=== PATIENT | male | born 1955 | race Caucasian/White ===

== ENCOUNTER 2019-02-12 06:31 | Day surgery (SDC) | payer MEDICARE, OTHER ==
[~2019-02-12 06:31] MED LIST: Lactated Ringers 1,000 ML IV SCH
[2019-02-12] MEDS ORDERED: DIPRIVAN 200 MG/20 ML IV ONE ×2 (07:43→08:18)
[2019-02-12 09:16] VITALS: BP 148/86; PULSE 63; O2SAT 94
--- NOTE | 2019-02-12 10:05 | OP ---
SURGERY DATE/TIME: 02/12/2019 0810 PREOPERATIVE DIAGNOSIS: Diarrhea. POSTOPERATIVE DIAGNOSIS: Diffuse diverticulosis. PROCEDURE: Colonoscopy. SURGEON: Larry Velasquez M.D. ANESTHESIA: MAC by Jakub Maria CRNA. ESTIMATED BLOOD LOSS: Minimal. SPECIMENS: Three random cold forceps biopsies were taken from the sigmoid colon. DESCRIPTION OF PROCEDURE: After informed written consent was obtained, the patient was taken to the endoscopy suite. He underwent monitored anesthesia and digital rectal exam showed normal sphincter tone and no internal lesions. The scope was inserted into the rectum and sequentially the entire colonic mucosa was traversed. The level of cecum was reached and verified with direct visualization of ileocecal valve. Upon withdrawal careful mucosal inspection revealed diffuse diverticulosis throughout most the length of the colon but no other mucosal lesions or abnormalities were noted. Three cold forceps biopsies were taken from the sigmoid colon in random locations for pathology testing. Prior to withdrawal retroflexion was performed and showed no internal lesions. The scope was removed and the patient was transferred to the recovery room in good condition.
== END 2019-02-12 09:29 | disposition home or self-care (01) ==
LOC: SDC 06:31
PROVIDERS: ATTEND Family Medicine
DX: K57.30 Diverticulosis of large intestine without perforation or abscess without bleeding (principal)
CPT/HCPCS: 88305; J2704

== ENCOUNTER → 2019-06-11 | Outpatient (CLI) | payer MEDICARE, OTHER | LOC: CLIN-LAKE 08:00 | PROVIDERS: ATTEND Family Medicine | DX: N40.1 Benign prostatic hyperplasia with lower urinary tract symptoms (principal); M19.90 Unspecified osteoarthritis, unspecified site | CPT/HCPCS: 99213 ==

== ENCOUNTER 2022-04-04 06:24 | Day surgery (SDC) | payer MEDICARE, OTHER ==
[2022-04-04] MEDS ORDERED: Lactated Ringers 1,000 ML IV ONE (06:37)
[2022-04-04] MEDS ORDERED: Xylocaine-Mpf 2% 5 Ml Vial ONE (06:59)
[2022-04-04] MEDS ORDERED: DIPRIVAN 200 MG/20 ML IV ONE ×2 (06:59)
[2022-04-04] MEDS ORDERED: Lactated Ringers 1,000 ML IV SCH (07:00)
[2022-04-04] MEDS ORDERED: Versed 2 MG/2 ML Injection ONE (07:53)
--- NOTE | 2022-04-04 08:29 | OP ---
SURGERY DATE/TIME: 04/04/2022 0756 PREOPERATIVE DIAGNOSIS: Screening colonoscopy. POSTOPERATIVE DIAGNOSIS: Normal colon. PROCEDURE: Colonoscopy. SURGEON: Larry Velasquez M.D. ANESTHESIA: MAC by Red Aiken CRNA. ESTIMATED BLOOD LOSS: None. SPECIMENS: None. DESCRIPTION OF PROCEDURE: After informed written consent was obtained, the patient was taken to the endoscopy suite. He was placed in left lateral decubitus position and anesthesia was titrated to desired level of consciousness. Digital rectal exam showed normal sphincter tone and no internal lesions. The scope was inserted into the rectum and sequentially the entire colonic mucosa was traversed. The level of cecum was reached and verified with direct visualization of the ileocecal valve. Upon withdrawal careful mucosal inspection revealed scattered diverticula but no other mucosal lesions. Prior to withdrawal retroflexion was performed and showed no internal lesions. The scope was removed. The patient was transferred to the recovery room in good condition.
[2022-04-04 09:17] VITALS: O2SAT 96
[2022-04-04 09:19] VITALS: BP 142/86; PULSE 58
== END 2022-04-04 09:12 | disposition home or self-care (01) ==
LOC: SDC 06:24
PROVIDERS: ATTEND Family Medicine
DX: Z12.11 Encounter for screening for malignant neoplasm of colon (principal)
CPT/HCPCS: J2250; J2704

== ENCOUNTER 2023-10-26 12:31 | Observation (INO) | payer MEDICARE, OTHER ==
[2023-10-26] MEDS ORDERED: BABY ASPIRIN 81 MG CHEW ONE (12:55)
[2023-10-26] MEDS ORDERED: NITRO-BID 2% UD PACKETS ONE (12:55)
[2023-10-26] MEDS ORDERED: Sodium Chloride 0.9% 1000 ML 1,000 ML ONE ×2 (12:55→16:08)
[2023-10-26 12:56] LABS: Absolute Neutrophil Ct (ANC) 4.44 x10^3/uL (1.4-6.9); BASOPHIL % 0.2 % (0.0-0.4); Basophil (Absolute #) 0.01 x10^3/uL (0-0.4); Eosinophil % 1.1 % (0.00-5.0); Eosinophil (Absolute #) 0.07 x10^3/uL (0-0.5); Hematocrit 40.8 % (42-50); Hemoglobin 13.4 g/dL (12.5-18.0); IMMATURE GRAN # 0.05 x10^3u/L (0.00-0.03); IMMATURE GRAN % 0.8 % (0.00-0.4); Lymphocyte (Absolute #) 1.49 x10^3/uL (1.0-4.6); Lymphocytes % 22.5 % (24.0-44.0); Mean Cell Volume 93.8 fL (78-100); Mean Corpuscular Hemoglobin 30.8 pg (26-32); Mean Corpuscular Hgb Concent. 32.8 g/dL (32-36); Mean Platelet Volume 8.9 fL (7.5-11.0); Monocyte (Absolute #) 0.56 x10^3/uL (0.0-1.3); Monocytes % 8.5 % (0.0-12.0); Neutrophil % 66.9 % (36.0-66.0); Platelet Count 204 x10^3/uL (150-450); Red Blood Count 4.35 x10^6/uL (4.1-5.6); Red Cell Distribution Width 13.4 % (11.5-14.0); White Blood Count 6.6 x10^3/uL (4.0-10.5)
[2023-10-26] MEDS: BABY ASPIRIN 81 MG CHEW PO ONE (12:57)
--- NOTE | 2023-10-26 12:57 | ERPHSYRPT ---
- History of Present Illness Time Seen by Provider: 10/26/23 12:53 Historian: patient Exam Limitations: no limitations Patient Subjective Stated Complaint: C/O intermittent chest pain that started on , 10/24/23. The pain became more constant today and was accompanied with "light headedness" and SOB so patient came into the ER to be evaluated. Triage Nursing Assessment: Patient ambulated back to ER. He is alert and oriented. Patient slightly SOB with ambulated but rebounding quickly. No cough present. Skin tone normal. No edema. JUDE PERALES. Physician History: Patient is 68-year-old male with significant past medical history of hypertension started having chest pain off and on since last 2 days while he was working yesterday it did got worse but at night it it went away today morning he started having chest pain again with shortness of breath so he came to the emergency room. He was complaining of right side chest pain with right-sided shoulder pain with mild shortness of breath. He denies any nausea vomiting diarrhea headache dizziness or loss of consciousness. Timing/Duration: day(s) (Two days) Quality: aching, dullness Location: shoulder Severity of Pain-Max: mild Severity of Pain-Current: moderate Associated Symptoms: shortness of breath Prior Chest Pain/Cardiac Workup: no prior chest pain Nitro Today/Relief: 0.4 mg x 1 Aspirin Treatment Today: 325 mg x 1 Allergies/Adverse Reactions: yellow dye Allergy (Severe, Verified 10/26/23 12:32) Hives yellow dye #5 Home Medications: Meloxicam [Mobic] 15 mg PO DAILY 02/10/19 [History] Metoprolol Succinate 25 mg Xl* [Toprol-Xl 25MG Tablets] 25 mg PO DAILY 04/23 [History] Amlodipine Besylate 5 mg [Norvasc 5 mg] 5 mg PO DAILY 04/03/22 [History] Tamsulosin HCl 0.4 mg [Flomax 0.4 MG] 0.4 mg PO DAILY 04/03/22 [History] hydroCHLOROthiazide [Hydrochlorothiazide] 12.5 mg PO DAILY 04/03/22 [History] Losartan Potassium [Cozaar] 1 tab PO DAILY 10/26/23 [History] Hx Tetanus, Diphtheria Vaccination/Date Given: Yes Hx Influenza Vaccination/Date Given: Yes Hx Pneumococcal Vaccination/Date Given: Yes Immunizations Up to Date: Yes Travel Risk - International Travel Have you traveled outside of the country in past 3 weeks: No - Emerging Infectious Disease Are you exhibiting symptoms associated with any current EIDs: Yes Symptoms: Shortness of Breath - Review of Systems Constitutional: No Fever, No Chills Eyes: No Symptoms Ears, Nose, & Throat: No Symptoms Respiratory: Dyspnea, No Cough Cardiac: Chest Pain, No Edema, No Syncope Abdominal/Gastrointestinal: No Abdominal Pain, No Nausea, No Vomiting, No Diarrhea Genitourinary Symptoms: No Dysuria Musculoskeletal: No Back Pain, No Neck Pain Skin: No Rash Neurological: No Dizziness, No Focal Weakness, No Sensory Changes Psychological: No Symptoms Endocrine: No Symptoms All Other Systems: Reviewed and Negative - Past Medical History Pertinent Past Medical History: Yes Neurological History: Migraines ENT History: Cataracts Cardiac History: Hypertension Respiratory History: No Pertinent History Endocrine Medical History: No Pertinent History Musculoskeletal History: Arthritis GI Medical History: No Pertinent History History: Other Psycho-Social History: No Pertinent History Male Reproductive Disorders: Prostate Problems Other Medical History: cellulitis R hand, leukemia (currently in remission) - Past Surgical History Past Surgical History: Yes Neuro Surgical History: No Pertinent History Cardiac: No Pertinent History Respiratory: No Pertinent History Gastrointestinal: Appendectomy Genitourinary: No Pertinent History Musculoskeletal: No Pertinent History Male Surgical History: No Pertinent History Other Surgical History: Hand surgery repair left tendon repair after air nail injury Significant Family History: no pertinent family hx - Social History Smoking Status: Never smoker Exposure to second hand smoke: No Drug Use: none - Nursing Vital Signs Nursing Vital Signs: Initial Vital Signs Pulse Rate 73 10/26/23 12:30 Respiratory Rate 17 10/26/23 12:30 Blood Pressure 158/92 10/26/23 12:30 O2 Sat by Pulse Oximetry 95 10/26/23 12:30 Pain Scale Pain Intensity 0 - Physical Exam General Appearance: no apparent distress, alert Eye Exam: PERRL/EOMI, eyes nml inspection Ears, Nose, Throat Exam: normal ENT inspection, moist mucous membranes Neck Exam: normal inspection, non-tender, supple, full range of motion Respiratory Exam: normal breath sounds, lungs clear, No respiratory distress Cardiovascular Exam: regular rate/rhythm, normal heart sounds Gastrointestinal/Abdomen Exam: soft, No tenderness, No mass Back Exam: normal inspection, No CVA tenderness, No vertebral tenderness Extremity Exam: normal inspection, normal range of motion Neurologic Exam: alert, oriented x 3, cooperative, normal mood/affect, sensation nml, No motor deficits Skin Exam: normal color, warm, dry SpO2: 95 - Course Nursing assessment & vital signs reviewed: Yes EKG Interpreted by Me: Sinus Rhythm, Non-specific ST Changes - Radiology Exams Chest X-ray Interpretation: Reviewed by me Ordered Tests: Active Orders 24 hr Category Date Time Status EKG-ER Only STAT Care 10/26/23 12:35 Active IV Insertion STAT Care 10/26/23 12:35 Active Oxygen-ED Only Nasal Cannula 2 lpm Care 10/26/23 12:35 Active ABDOMEN AND PELVIS W/0 CONTRAS [CT] Stat Exams 10/26/23 16:26 Completed CHEST 2 VIEWS (PA AND LAT) Stat Exams 10/26/23 12:37 Taken CHEST WITH CONTRAST [CT] Stat Exams 10/26/23 13:29 Completed CBC W DIFF Stat Lab 10/26/23 12:44 Completed CMP Stat Lab 10/26/23 12:44 Completed D-DIMER QUANTITATIVE Stat Lab 10/26/23 12:44 Completed OB-FECAL SCREEN Stat Lab 10/26/23 Ordered PROTIME WITH INR Stat Lab 10/26/23 12:44 Completed PTT Stat Lab 10/26/23 12:44 Completed TROPONIN Q4H Lab 10/26/23 17:30 Received TROPONIN Q4H Lab 10/26/23 20:45 Ordered Medication Summary Discontinued Medications Generic Name Dose Route Start Last Admin Trade Name Freq PRN Reason Stop Dose Admin Aspirin 324 mg 10/26/23 12:35 10/26/23 12:57 Aspirin 81 Mg Tab.Chew PO 10/26/23 12:36 324 mg STAT ONE Administration Aspirin Confirm 10/26/23 12:55 Aspirin 81 Mg Tab.Chew Administered 10/26/23 12:56 Dose 324 mg .ROUTE .STK-MED ONE Enoxaparin Sodium 120 mg 10/26/23 15:46 10/26/23 16:07 Enoxaparin Sodium 120 Mg/0.8 Ml Syringe SQ 10/26/23 15:47 120 mg STAT STA Administration Enoxaparin Sodium Confirm 10/26/23 16:04 Enoxaparin Sodium 120 Mg/0.8 Ml Syringe Administered 10/26/23 16:05 Dose 120 mg SQ .STK-MED ONE Sodium Chloride 1,000 mls @ 100 mls/hr 10/26/23 12:45 10/26/23 15:00 Sodium Chloride 0.9% 1000 Ml IV 11/25/23 12:44 Infused .Q10H KALPESH Infusion Sodium Chloride Confirm 10/26/23 12:55 Sodium Chloride 0.9% 1000 Ml Administered 10/26/23 12:56 Dose 1,000 mls @ ud .ROUTE .STK-MED ONE Sodium Chloride Confirm 10/26/23 16:08 Sodium Chloride 0.9% 1000 Ml Administered 10/26/23 16:09 Dose 1,000 mls @ ud .ROUTE .STK-MED ONE Sodium Chloride 1,000 mls @ 999 mls/hr 10/26/23 16:11 10/26/23 17:30 Sodium Chloride 0.9% 1000 Ml IV 10/26/23 17:11 Infused .Q1H1M STA Infusion Morphine Sulfate 4 mg 10/26/23 12:35 10/26/23 13:03 Morphine Sulfate 4 Mg/Ml Injection IV 10/26/23 12:36 Not Given STAT ONE Nitroglycerin 1 gm 10/26/23 12:35 10/26/23 12:58 Nitroglycerin 1 Gm Packet TOP 10/26/23 12:36 1 gm STAT ONE Administration Nitroglycerin Confirm 10/26/23 12:55 Nitroglycerin 1 Gm Packet Administered 10/26/23 12:56 Dose 1 gm .ROUTE .STK-MED ONE Rivaroxaban 20 mg 10/26/23 15:47 10/26/23 16:51 Rivaroxaban 10 Mg Tablet PO 10/26/23 15:48 Not Given ONCE ONE Lab/Rad Data: Laboratory Result Diagrams 10/26/23 12:44 10/26/23 12:44 Laboratory Results 10/26/23 10/26/23 10/26/23 Range/Units 12:44 12:44 12:44 WBC (4.0-10.5) x10^3/uL RBC (4.1-5.6) x10^6/uL Hgb (12.5-18.0) g/dL Hct (42-50) % MCV (78-100) fL MCH (26-32) pg MCHC (32-36) g/dL RDW (11.5-14.0) % Plt Count (150-450) x10^3/uL MPV (7.5-11.0) fL Gran % (36.0-66.0) % Immature Gran % (Auto) (0.00-0.4) % Nucleat RBC Rel Count (0.00-0.1) % Eos # (Auto) (0-0.5) x10^3/uL Immature Gran # (Auto) (0.00-0.03) x10^3u/L Absolute Lymphs (auto) (1.0-4.6) x10^3/uL Absolute Monos (auto) (0.0-1.3) x10^3/uL Absolute Nucleated RBC (0.00-0.01) x10^3u/L Lymphocytes % (24.0-44.0) % Monocytes % (0.0-12.0) % Eosinophils % (0.00-5.0) % Basophils % (0.0-0.4) % Absolute Granulocytes (1.4-6.9) x10^3/uL Basophils # (0-0.4) x10^3/uL PT 10.6 (9.4-12.5) SECONDS INR 0.97 (0.8-3.0) APTT 25.4 (25.1-36.5) SECONDS D-Dimer 4.90 H* (0.0-0.50) mg/L Sodium 138 (135-145) mmol/L Potassium 4.0 (3.5-5.1) mmol/L Chloride 108 H (98-107) mmol/L Carbon Dioxide 20 L (22-30) mmol/L Anion Gap 13.9 (5-15) MEQ/L BUN 24 H (9-20) mg/dL Creatinine 1.56 H (0.66-1.25) mg/dL Estimated GFR 47.5 ML/MIN Glucose 94 (74-106) mg/dL Calcium 9.0 (8.4-10.2) mg/dL Total Bilirubin 0.80 (0.2-1.3) mg/dL AST 23 (17-59) U/L ALT 18 (0-50) U/L Alkaline Phosphatase 71 (38-126) U/L Troponin 0.04 H (0.00-0.03) ng/mL Serum Total Protein 6.8 (6.3-8.2) g/dL Albumin 4.2 (3.5-5.0) g/dL 10/26/23 Range/Units 12:44 WBC 6.6 (4.0-10.5) x10^3/uL RBC 4.35 (4.1-5.6) x10^6/uL Hgb 13.4 (12.5-18.0) g/dL Hct 40.8 L (42-50) % MCV 93.8 (78-100) fL MCH 30.8 (26-32) pg MCHC 32.8 (32-36) g/dL RDW 13.4 (11.5-14.0) % Plt Count 204 (150-450) x10^3/uL MPV 8.9 (7.5-11.0) fL Gran % 66.9 H (36.0-66.0) % Immature Gran % (Auto) 0.8 H (0.00-0.4) % Nucleat RBC Rel Count 0.0 (0.00-0.1) % Eos # (Auto) 0.07 (0-0.5) x10^3/uL Immature Gran # (Auto) 0.05 H (0.00-0.03) x10^3u/L Absolute Lymphs (auto) 1.49 (1.0-4.6) x10^3/uL Absolute Monos (auto) 0.56 (0.0-1.3) x10^3/uL Absolute Nucleated RBC 0.00 (0.00-0.01) x10^3u/L Lymphocytes % 22.5 L (24.0-44.0) % Monocytes % 8.5 (0.0-12.0) % Eosinophils % 1.1 (0.00-5.0) % Basophils % 0.2 (0.0-0.4) % Absolute Granulocytes 4.44 (1.4-6.9) x10^3/uL Basophils # 0.01 (0-0.4) x10^3/uL PT (9.4-12.5) SECONDS INR (0.8-3.0) APTT (25.1-36.5) SECONDS D-Dimer (0.0-0.50) mg/L Sodium (135-145) mmol/L Potassium (3.5-5.1) mmol/L Chloride (98-107) mmol/L Carbon Dioxide (22-30) mmol/L Anion Gap (5-15) MEQ/L BUN (9-20) mg/dL Creatinine (0.66-1.25) mg/dL Estimated GFR ML/MIN Glucose (74-106) mg/dL Calcium (8.4-10.2) mg/dL Total Bilirubin (0.2-1.3) mg/dL AST (17-59) U/L ALT (0-50) U/L Alkaline Phosphatase (38-126) U/L Troponin (0.00-0.03) ng/mL Serum Total Protein (6.3-8.2) g/dL Albumin (3.5-5.0) g/dL CT/CHEST WITH CONTRAST CLINICAL HISTORY: shortness of breath,Elevated Ddimer TECHNIQUE: Contiguous axial CT images of the chest were acquired with the administration of intravenous contrast. Coronal and sagittal reconstructions were obtained. One of the following dose reduction techniques were utilized for this exam: Automated exposure control, adjustment of the mA and/or kV according to patient size, and use of iterative reconstruction. COMPARISON: None FINDINGS: Intraluminal hypodense filling defects are seen implicating both right and left pulmonary arterial bifurcation partially occluding their lumens and extending variably into the segmental and subsegmental upper and lower branches bilaterally. The main pulmonary artery is not dilated. Mild atheromatous calcifications of the thoracic aorta with no aneurysmal dilatation or dissecting intimal flaps. Right lower lung lobe lateral segment rounded subpleural consolidation. Bi basal subpleural fine reticulations/atelectatic plates. Multiple bilateral scattered subpleural and parenchymal nodules are seen, the largest is seen at the right upper lobe subpleural measures 5mm. some of them are calcified. No free or encysted pleural effusion. Heart size is grossly unremarkable with no pericardial thickening/effusion. No enlarged mediastinal, and hilar lymph nodes was identified. There is no definite mass lesion in the chest wall. Dorsal spondylosis. IMPRESSION: 1. Bilateral right and left pulmonary arterial thromboembolism extending into segmental and subsegmental branches. 2. Right lower lung lobe subpleural rounded consolidative patch, likely infarct rather than inflammatory. 3. Multiple small bilateral pulmonary nodules, some of them are calcified. No routine follow up required. - Progress Progress: improved Air Movement: good Blood Culture(s) Obtained: No Antibiotics given: No Discussed with : Other (Telehospitalist Sx) Counseled pt/family regarding: lab results, diagnosis, need for follow-up, rad results Medical Desision Making - Independent Historian Additional History obtained from: Family - Diagnostic Testing Diagnostic test were ordered, analyzed, and reviewed by me: Yes Radiological Interpretation: Teleradiologist Report - Risk of complications The pt has a mod risk of morbidity or mortality based on: Need for prescription drug management - Departure Departure Disposition: In-patient Admission Clinical Impression: Pulmonary embolism, bilateral, Acute diverticulitis Condition: Fair Critical Care Time: Yes Critical Care Time(excluding separately billable procedures): Critical 30-74 mins Referrals: WILLIAM ALTAMIRANO MD [Primary Care Provider] - Follow up/PCP as directed Instructions: Pulmonary embolism (blood clot in the lung), Pulmonary Embolism (Blood Clot in the Lungs) (DC) Prescriptions: Rivaroxaban [Xarelto] 15 mg PO BID #42 tablet
[2023-10-26] MEDS: Sodium Chloride 0.9% 1000 ML 1,000 ML IV SCH ×2 (12:58→22:11)
[2023-10-26] MEDS: NITRO-BID 2% UD PACKETS TOP ONE (12:58)
[2023-10-26] MEDS: MORPHINE SULFATE 4 MG INJ IV ONE (13:03)
[2023-10-26 13:14] LABS: ALBUMIN 4.2 g/dL (3.5-5.0); ANION GAP 13.9 MEQ/L (5-15); BILIRUBIN,TOTAL 0.8 mg/dL (0.2-1.3); Creatinine 1 1.56 mg/dL (0.66-1.25); EST GLOMERULAR FILTRATION RATE 47.5 ML/MIN; Total Protein 6.8 g/dL (6.3-8.2)
[2023-10-26 13:26] LABS: INR 0.97 (0.8-3.0); PROTIME 10.6 SECONDS (9.4-12.5); PTT 25.4 SECONDS (25.1-36.5)
[2023-10-26 13:28] LABS: D-DIMER QUANTITATIVE 4.9 mg/L (0.0-0.50)
--- NOTE | 2023-10-26 15:55 | XRAY ---
CLINICAL HISTORY: shortness of breath,Elevated Ddimer TECHNIQUE: Contiguous axial CT images of the chest were acquired with the administration of intravenous contrast. Coronal and sagittal reconstructions were obtained. One of the following dose reduction techniques were utilized for this exam: Automated exposure control, adjustment of the mA and/or kV according to patient size, and use of iterative reconstruction. COMPARISON: None FINDINGS: Intraluminal hypodense filling defects are seen implicating both right and left pulmonary arterial bifurcation partially occluding their lumens and extending variably into the segmental and subsegmental upper and lower branches bilaterally. The main pulmonary artery is not dilated. Mild atheromatous calcifications of the thoracic aorta with no aneurysmal dilatation or dissecting intimal flaps. Right lower lung lobe lateral segment rounded subpleural consolidation. Bi basal subpleural fine reticulations/atelectatic plates. Multiple bilateral scattered subpleural and parenchymal nodules are seen, the largest is seen at the right upper lobe subpleural measures 5mm. some of them are calcified. No free or encysted pleural effusion. Heart size is grossly unremarkable with no pericardial thickening/effusion. No enlarged mediastinal, and hilar lymph nodes was identified. There is no definite mass lesion in the chest wall. Dorsal spondylosis. IMPRESSION: 1. Bilateral right and left pulmonary arterial thromboembolism extending into segmental and subsegmental branches. 2. Right lower lung lobe subpleural rounded consolidative patch, likely infarct rather than inflammatory. 3. Multiple small bilateral pulmonary nodules, some of them are calcified. No routine follow up required. [facility] was called on [id number] at 02:43 PM TECHNICAL SUPPORT COORDINATOR, 10/26/2023 and the results were communicated with Dr. Davey Valenzuela. Electronically Signed by: Flavio Cadena MD. (10/26/2023 15:51:40 EDT)
[2023-10-26] MEDS ORDERED: ENOXAPARIN SODIUM SQ ONE (16:04)
[2023-10-26] MEDS: ENOXAPARIN SODIUM SQ STA (16:07)
[2023-10-26] MEDS: Sodium Chloride 0.9% 1000 ML 1,000 ML IV STA (16:12)
[2023-10-26] MEDS: XARELTO 10 MG TABLET PO ONE (16:51)
--- NOTE | 2023-10-26 17:21 | XRAY ---
CLINICAL HISTORY: Pain, history lymphoma TECHNIQUE: A CT scan of the abdomen was performed without IV contrast, Coronal and sagittal reconstructive images were also obtained. One of the following dose reduction techniques were utilized for this exam: Automated exposure control, adjustment of the mA and/or kV according to patient size, use of iterative reconstruction COMPARISON: None FINDINGS: Lung bases; please refer to dedicated chest CT. Abdomen: A contrast medium is noted within the collecting system. There is an exophytic cyst within the interpolar segment of the right kidney measuring 1.9 cm. Left extrarenal pelvis appearance is seen. Otherwise, the kidneys are unremarkable. They are normal in size and shape. No calculi or hydronephrosis is seen. There is bilateral non-specific perinephric fat-strandings. Multiple colon diverticuli are seen with minimal surrounding fat strandings in the sigmoid colon. A small fat-containing right groin hernia is seen. The liver is normal in size without focal parenchymal abnormality. The intrahepatic biliary radicals and the bile ducts are normal. The gallbladder is normal. No pericholecystic fluid collection or radio-dense calculi in the gall bladder. The spleen, pancreas, and adrenal glands are unremarkable. The ascending colon, the transverse colon, the descending colon, visualized small bowel loops are unremarkable. There is no evidence of significant enlargement of the mesenteric or retroperitoneal lymph nodes. Moderate lumbar spondylosis is seen with multilevel marginal osteophytes and straightening of lumbar lordosis. Pelvis: The urinary bladder is unremarkable. The rectosigmoid colon is unremarkable. The prostate is unremarkable The pelvic vasculature is unremarkable. No evidence of pelvic lymphadenopathy. IMPRESSION: 1. Colonic diverticulosis with minimal surrounding fat strandings in the sigmoid colon, may represent an early sign of acute diverticulitis. 2. Right renal simple cyst. 3. A small fat-containing right inguinal hernia. 4. No prominent lymphadenopathy seen. [facility] was called on [id number] at 04:10 PM RIB STIFFENER AND HEEL DIPPER, 10/26/2023 and the results were communicated with Dr. Davey Valenzuela. Electronically Signed by: Flavio Cadena MD. (10/26/2023 17:16:56 EDT)
[2023-10-26 18:16] LABS: IFOB TEST RESULTS NEGATIVE (NEGATIVE)
[2023-10-26 18:49] LABS: 027 TOX PROD PRESUMPTIVE NEGATIVE (NEGATIVE); TOXIGENIC C. DIFF ORG NEGATIVE (NEGATIVE)
--- NOTE | 2023-10-26 20:20 | XRAY ---
Indication: Chest pain. Short of breath. Comparison: None PA/lateral chest hyperinflated and clear with a few incidental tiny calcified granulomas. Heart and [place] structures within normal limits. Bony thorax intact with osteopenia and mild degenerative changes. Impression: Nonacute hyperinflated chest with chronic features.
[2023-10-26] MEDS ORDERED: TYLENOL 325 MG PO PRN (21:46)
[2023-10-26] MEDS ORDERED: Zofran 4 MG/2 ML VIAL IV PRN (21:46)
--- NOTE | 2023-10-26 21:59 | PCM.HP ---
History of Present Illness - Chief Complaint Chief Complaint: Diverticulitis, Bilateral PE History of Present Illness: is a 68 year old male with past medical history of NHL in remission > 2 yrs, HTN, BPH and Arthritis came in today eith c/o intermittent chest pain and SOB. These has been going on since last . He came in today for the SOB. Also c/o dizziness. Denies cough, wheezing, palpitation, orthopnea, legs swelling nor pain, prior hx of CAD/CHF/pulmonary embolism. He denies any recent surgery or trauma. In ER, CT chest with IV contrast shows BL PE. He was being DC'ed to home with oral Eliquis but he c/o abdominal pain aas well. CT abd shows diverticulitis - thus the decision to keep him overnight for monitoring. He denies significant abdominal pain - a dull aching lower part, 3-5 out of 10. No nausea, vomiting, diarrhea, melena or hematochezia. I saw him via telemedicine. He is resting on room air, very comfrotable. No distress and non-septic on my exam - Review of Systems Constitutional: No Symptoms Eyes: No Symptoms Ears, Nose, & Throat: No Symptoms Respiratory: Short Of Breath Cardiac: Chest Pain Abdominal/Gastrointestinal: Abdominal Pain Genitourinary Symptoms: No Symptoms Musculoskeletal: No Symptoms Skin: No Symptoms Neurological: Dizziness Psychological: No Symptoms Endocrine: No Symptoms Hematologic/Lymphatic: No Symptoms Immunological/Allergic: No Symptoms Medications & Allergies Home Medications: Home Medication List Meloxicam [Mobic] 15 mg PO DAILY 02/10/19 [History Confirmed 10/26/23] Metoprolol Succinate 25 mg Xl* [Toprol-Xl 25MG Tablets] 25 mg PO DAILY 02/10/19 [History Confirmed 10/26/23] Amlodipine Besylate 5 mg [Norvasc 5 mg] 5 mg PO DAILY 04/03/22 [History Confirmed 10/26/23] Tamsulosin HCl 0.4 mg [Flomax 0.4 MG] 0.4 mg PO DAILY 04/03/22 [History Confirmed 10/26/23] hydroCHLOROthiazide [Hydrochlorothiazide] 12.5 mg PO DAILY 04/03/22 [History Confirmed 10/26/23] Losartan Potassium [Cozaar] 1 tab PO DAILY 10/26/23 [History Confirmed 10/26/23] Non-Formulary Drug [Non-Formulary Item] 4 cap PO QAM 10/26/23 [History Confirmed 10/26/23] Rivaroxaban [Xarelto] 15 mg PO BID #42 tablet 10/26/23 [Rx] Allergies/Adverse Reactions: Allergies Allergy/AdvReac Type Severity Reaction Status Date / Time yellow dye Allergy Severe Hives Verified 10/26/23 12:32 - Past Medical History Past Medical History: Yes Neurological History: Migraines ENT History: Cataracts Cardiac History: Hypertension Respiratory History: No Pertinent History Endocrine Medical History: No Pertinent History Musculoskelatal History: Arthritis GI Medical History: Diverticulitis History: Other Pyscho-Social History: No Pertinent History Male Reproductive Disorders: Prostate Problems Comment: cellulitis R hand, leukemia (currently in remission) - Past Surgical History Past Surgical History: Yes Neuro Surgical History: No Pertinent History Cardiac History: No Pertinent History Respiratory Surgery: No Pertinent History GI Surgical History: Appendectomy Genitourinary Surgical Hx: No Pertinent History Musculskeletal Surgical Hx: No Pertinent History Male Surgical History: No Pertinent History Other Surgical History: Hand surgery repair left tendon repair after air nail injury Significant Family History: no pertinent family hx - Social History Smoking Status: Never smoker Exposure to second hand smoke: No Alcohol: Occasionally Drug Use: none - Social Determinants of Health Will the patient participate in the screening: Yes Do you worry about a steady place to live?: No Do you have any problems with any of the following?: No known problems In the past 12 months,have you had to go without utilities?: No Have you or anyone in your house had to go without enough: No Transportation Issues: No Has anyone in your support network made you feel unsafe?: No Does the patient want assistance with any of the above?: No - Physical Exam Vital Signs: Vital Signs - 24 hr Temp Pulse Resp BP BP Pulse Ox 10/26/23 20:00 97.1 F 70 20 133/81 94 L 10/26/23 18:13 69 96 10/26/23 18:12 97.5 F 77 24 140/87 98 10/26/23 17:41 95 10/26/23 17:00 80 17 95 10/26/23 16:50 79 26 H 96 03/23/24 16:40 74 22 95 10/26/23 16:00 146/87 10/26/23 15:30 84 23 125/85 93 L 10/26/23 15:07 96 H 30 H 118/76 93 L 10/26/23 15:06 102 H 20 95 10/26/23 14:30 80 24 132/85 93 L 10/26/23 14:00 77 21 133/89 95 10/26/23 13:30 75 29 H 144/100 94 L 10/26/23 13:00 85 24 141/82 94 L 10/26/23 12:49 83 19 146/96 95 10/26/23 12:35 97.6 F 97 H 20 158/92 97 10/26/23 12:30 73 17 158/92 95 General Appearance: no apparent distress, alert Neurologic Exam: alert, oriented x 3, cooperative, normal mood/affect Eye Exam: PERRL/EOMI Ears, Nose, Throat Exam: normal ENT inspection, moist mucous membranes Neck Exam: normal inspection Respiratory Exam: normal breath sounds, lungs clear Cardiovascular Exam: regular rate/rhythm, normal heart sounds Gastrointestinal/Abdomen Exam: soft, normal bowel sounds Rectal Exam: deferred Extremity Exam: normal inspection Skin Exam: normal color Results - Labs Lab/Micro Results: Lab Results-Last 24 Hours 10/26/23 10/26/23 10/26/23 Range/Units 12:44 12:44 12:44 WBC 6.6 (4.0-10.5) x10^3/uL RBC 4.35 (4.1-5.6) x10^6/uL Hgb 13.4 (12.5-18.0) g/dL Hct 40.8 L (42-50) % MCV 93.8 (78-100) fL MCH 30.8 (26-32) pg MCHC 32.8 (32-36) g/dL RDW 13.4 (11.5-14.0) % Plt Count 204 (150-450) x10^3/uL MPV 8.9 (7.5-11.0) fL Gran % 66.9 H (36.0-66.0) % Immature Gran % (Auto) 0.8 H (0.00-0.4) % Nucleat RBC Rel Count 0.0 (0.00-0.1) % Eos # (Auto) 0.07 (0-0.5) x10^3/uL Immature Gran # (Auto) 0.05 H (0.00-0.03) x10^3u/L Absolute Lymphs (auto) 1.49 (1.0-4.6) x10^3/uL Absolute Monos (auto) 0.56 (0.0-1.3) x10^3/uL Absolute Nucleated RBC 0.00 (0.00-0.01) x10^3u/L Lymphocytes % 22.5 L (24.0-44.0) % Monocytes % 8.5 (0.0-12.0) % Eosinophils % 1.1 (0.00-5.0) % Basophils % 0.2 (0.0-0.4) % Absolute Granulocytes 4.44 (1.4-6.9) x10^3/uL Basophils # 0.01 (0-0.4) x10^3/uL PT 10.6 (9.4-12.5) SECONDS INR 0.97 (0.8-3.0) APTT 25.4 (25.1-36.5) SECONDS D-Dimer 4.90 H* (0.0-0.50) mg/L Sodium 138 (135-145) mmol/L Potassium 4.0 (3.5-5.1) mmol/L Chloride 108 H (98-107) mmol/L Carbon Dioxide 20 L (22-30) mmol/L Anion Gap 13.9 (5-15) MEQ/L BUN 24 H (9-20) mg/dL Creatinine 1.56 H (0.66-1.25) mg/dL Estimated GFR 47.5 ML/MIN Glucose 94 (74-106) mg/dL Calcium 9.0 (8.4-10.2) mg/dL Total Bilirubin 0.80 (0.2-1.3) mg/dL AST 23 (17-59) U/L ALT 18 (0-50) U/L Alkaline Phosphatase 71 (38-126) U/L Troponin (0.00-0.03) ng/mL Troponin I (0.000-0.034) ng/mL Serum Total Protein 6.8 (6.3-8.2) g/dL Albumin 4.2 (3.5-5.0) g/dL Stl Occult Blood (IFOB) (NEGATIVE) C. difficile Screen (NEGATIVE) C.difficile 027-NAP1-B1 (NEGATIVE) 10/26/23 10/26/23 10/26/23 Range/Units 12:44 17:30 17:59 WBC (4.0-10.5) x10^3/uL RBC (4.1-5.6) x10^6/uL Hgb (12.5-18.0) g/dL Hct (42-50) % MCV (78-100) fL MCH (26-32) pg MCHC (32-36) g/dL RDW (11.5-14.0) % Plt Count (150-450) x10^3/uL MPV (7.5-11.0) fL Gran % (36.0-66.0) % Immature Gran % (Auto) (0.00-0.4) % Nucleat RBC Rel Count (0.00-0.1) % Eos # (Auto) (0-0.5) x10^3/uL Immature Gran # (Auto) (0.00-0.03) x10^3u/L Absolute Lymphs (auto) (1.0-4.6) x10^3/uL Absolute Monos (auto) (0.0-1.3) x10^3/uL Absolute Nucleated RBC (0.00-0.01) x10^3u/L Lymphocytes % (24.0-44.0) % Monocytes % (0.0-12.0) % Eosinophils % (0.00-5.0) % Basophils % (0.0-0.4) % Absolute Granulocytes (1.4-6.9) x10^3/uL Basophils # (0-0.4) x10^3/uL PT (9.4-12.5) SECONDS INR (0.8-3.0) APTT (25.1-36.5) SECONDS D-Dimer (0.0-0.50) mg/L Sodium (135-145) mmol/L Potassium (3.5-5.1) mmol/L Chloride (98-107) mmol/L Carbon Dioxide (22-30) mmol/L Anion Gap (5-15) MEQ/L BUN (9-20) mg/dL Creatinine (0.66-1.25) mg/dL Estimated GFR ML/MIN Glucose (74-106) mg/dL Calcium (8.4-10.2) mg/dL Total Bilirubin (0.2-1.3) mg/dL AST (17-59) U/L ALT (0-50) U/L Alkaline Phosphatase (38-126) U/L Troponin 0.04 H (0.00-0.03) ng/mL Troponin I 0.026 (0.000-0.034) ng/mL Serum Total Protein (6.3-8.2) g/dL Albumin (3.5-5.0) g/dL Stl Occult Blood (IFOB) (NEGATIVE) C. difficile Screen NEGATIVE (NEGATIVE) C.difficile 027-NAP1-B1 PRESUMPTIVE NEGATIVE (NEGATIVE) 10/26/23 10/26/23 Range/Units 18:00 20:33 WBC (4.0-10.5) x10^3/uL RBC (4.1-5.6) x10^6/uL Hgb (12.5-18.0) g/dL Hct (42-50) % MCV (78-100) fL MCH (26-32) pg MCHC (32-36) g/dL RDW (11.5-14.0) % Plt Count (150-450) x10^3/uL MPV (7.5-11.0) fL Gran % (36.0-66.0) % Immature Gran % (Auto) (0.00-0.4) % Nucleat RBC Rel Count (0.00-0.1) % Eos # (Auto) (0-0.5) x10^3/uL Immature Gran # (Auto) (0.00-0.03) x10^3u/L Absolute Lymphs (auto) (1.0-4.6) x10^3/uL Absolute Monos (auto) (0.0-1.3) x10^3/uL Absolute Nucleated RBC (0.00-0.01) x10^3u/L Lymphocytes % (24.0-44.0) % Monocytes % (0.0-12.0) % Eosinophils % (0.00-5.0) % Basophils % (0.0-0.4) % Absolute Granulocytes (1.4-6.9) x10^3/uL Basophils # (0-0.4) x10^3/uL PT (9.4-12.5) SECONDS INR (0.8-3.0) APTT (25.1-36.5) SECONDS D-Dimer (0.0-0.50) mg/L Sodium (135-145) mmol/L Potassium (3.5-5.1) mmol/L Chloride (98-107) mmol/L Carbon Dioxide (22-30) mmol/L Anion Gap (5-15) MEQ/L BUN (9-20) mg/dL Creatinine (0.66-1.25) mg/dL Estimated GFR ML/MIN Glucose (74-106) mg/dL Calcium (8.4-10.2) mg/dL Total Bilirubin (0.2-1.3) mg/dL AST (17-59) U/L ALT (0-50) U/L Alkaline Phosphatase (38-126) U/L Troponin (0.00-0.03) ng/mL Troponin I 0.022 (0.000-0.034) ng/mL Serum Total Protein (6.3-8.2) g/dL Albumin (3.5-5.0) g/dL Stl Occult Blood (IFOB) NEGATIVE (NEGATIVE) C. difficile Screen (NEGATIVE) C.difficile 027-NAP1-B1 (NEGATIVE) - Radiology Impressions Radiology Exams & Impressions: Radiology Procedures Category Date Time Status ABDOMEN AND PELVIS W/0 CONTRAS [CT] Stat Exams 10/26/23 16:26 Completed CHEST 2 VIEWS (PA AND LAT) Stat Exams 10/26/23 12:37 Completed CHEST WITH CONTRAST [CT] Stat Exams 10/26/23 13:29 Completed - Other Procedures and Tests Respiratory Therapy 10/26/23 18:13 Oxygen Nasal Cannula 2 lpm Assessment/Plan (1) Acute diverticulitis Current Visit: Yes Status: Acute Assessment & Plan: Not septic on exam. CDif negative. Stool occult negative. Add IV Flagyl tonight. IVF, clear liquid diet, and advance as tolerated Code(s): K57.92 - DVTRCLI OF INTEST, PART UNSP, W/O PERF OR ABSCESS W/O BLEED (2) Pulmonary embolism, bilateral Current Visit: Yes Status: Acute Assessment & Plan: BL PE seen on CT chest. No prior, unprovoked. Plan Eliquis 5mg BID orallly. He was given Lovenox treatment dose tonight. Stool occult was negative. Hgb normal. Hold and avoid all NSAIDs from now on. He was on Meloxicam Code(s): I26.99 - OTHER PULMONARY EMBOLISM WITHOUT ACUTE COR PULMONALE (3) Chronic kidney disease, stage 3 unspecified Current Visit: Yes Status: Acute Assessment & Plan: Cr 1.56. He was told he has CKD by his PCP 1 yr ago. He received IV contrast for CT chest, so will monitor closely for sign of JV. He was given IVF bolus at the time of IV contrast administration. I will continue NS at 75ml/hr. Monitor Cr closely He is to avoid all NSAIDs. I am holding ARB and thiazide for now as well (in case he developed an EVAN, and diuretic use in and around time of IV contrast can increase risk for JV). Code(s): N18.30 - CHRONIC KIDNEY DISEASE, STAGE 3 UNSPECIFIED (4) Essential (primary) hypertension Current Visit: Yes Status: Acute Assessment & Plan: BP being monitored. Resume Almodipine. Holding HCTZ and Losartan given EVAN. Code(s): I10 - ESSENTIAL (PRIMARY) HYPERTENSION (5) BPH (benign prostatic hyperplasia) Current Visit: Yes Status: Acute Assessment & Plan: Resume flomax Code(s): N40.0 - BENIGN PROSTATIC HYPERPLASIA WITHOUT LOWER URINRY TRACT SYMP (6) Arthritis Current Visit: Yes Status: Acute Assessment & Plan: Tylenol prn. Avoid all NSAIDs given CKD/EVAN Code(s): M19.90 - UNSPECIFIED OSTEOARTHRITIS, UNSPECIFIED SITE Telemedicine Encounter - Telemedicine Encounter Telemedicine Encounter: The entirety of this encounter was performed via Telemedicine" The pt gave verbal consent to have this telemedicine visit
[2023-10-27] MEDS ORDERED: FLAGYL 500 MG IVPB 500 MG/100 ML BAG IV ONE ×2 (00:04→05:51)
[2023-10-27] MEDS: FLAGYL 500 MG IVPB 500 MG/100 ML BAG IV SCH (00:22)
[2023-10-27 04:03] VITALS: RESP 18
[2023-10-27 05:56] LABS: Hematocrit 35.3 % (42-50); Hemoglobin 11.6 g/dL (12.5-18.0); Mean Cell Volume 94.1 fL (78-100); Mean Corpuscular Hemoglobin 30.9 pg (26-32); Mean Corpuscular Hgb Concent. 32.9 g/dL (32-36); Mean Platelet Volume 8.9 fL (7.5-11.0); Platelet Count 171 x10^3/uL (150-450); Red Blood Count 3.75 x10^6/uL (4.1-5.6); Red Cell Distribution Width 13.3 % (11.5-14.0); White Blood Count 5.1 x10^3/uL (4.0-10.5)
--- NOTE | 2023-10-27 06:13 | PCM.NOTE ---
Date and Time: 10/27/23606 Subjective Assessment: is a 68 year old male with past medical history of NHL in remission > 2 yrs, HTN, BPH and Arthritis came in today eith c/o intermittent chest pain and SOB. These has been going on since last . He came in today for the SOB. Also c/o dizziness. Denies cough, wheezing, palpitation, orthopnea, legs swelling nor pain, prior hx of CAD/CHF/pulmonary embolism. He denies any recent surgery or trauma. In ER, CT chest with IV contrast shows BL PE. He was being DC'ed to home with oral Eliquis but he c/o abdominal pain aas well. CT abd shows diverticulitis - thus the decision to keep him overnight for monitoring. He denies significant abdominal pain - a dull aching lower part, 3-5 out of 10. No nausea, vomiting, diarrhea, melena or hematochezia. Objective Data Vital Signs: Vital Signs - 24 hr Temp Pulse Resp BP BP Pulse Ox 10/27/23 04:00 97.0 F 68 18 135/78 92 L 10/27/23 00:00 97.8 F 73 20 163/95 92 L 10/26/23 20:00 97.1 F 70 20 133/81 94 L 10/26/23 18:13 69 96 10/26/23 18:12 97.5 F 77 24 140/87 98 10/26/23 17:41 95 10/26/23 17:00 80 17 95 10/26/23 16:50 79 26 H 96 10/26/23 16:40 74 22 95 10/26/23 16:00 146/87 10/26/23 15:30 84 23 125/85 93 L 10/26/23 15:07 96 H 30 H 118/76 93 L 10/26/23 15:06 102 H 20 95 10/26/23 14:30 80 24 132/85 93 L 10/26/23 14:00 77 21 133/89 95 10/26/23 13:30 75 29 H 144/100 94 L 10/26/23 13:00 85 24 141/82 94 L 10/26/23 12:49 83 19 146/96 95 10/26/23 12:35 97.6 F 97 H 20 158/92 97 10/26/23 12:30 73 17 158/92 95 Pain Assessment - Last Documented Pain Intensity 0 Intake and Output: Intake & Output 10/24/23 10/25/23 10/26/23 10/27/23 11:59 11:59 11:59 11:59 Intake Total 2717 Balance 2717 Weight 76.7 kg Lab Results: Lab Results-Last 24 Hours 10/26/23 10/26/23 10/26/23 Range/Units 12:44 12:44 12:44 WBC 6.6 (4.0-10.5) x10^3/uL RBC 4.35 (4.1-5.6) x10^6/uL Hgb 13.4 (12.5-18.0) g/dL Hct 40.8 L (42-50) % MCV 93.8 (78-100) fL MCH 30.8 (26-32) pg MCHC 32.8 (32-36) g/dL RDW 13.4 (11.5-14.0) % Plt Count 204 (150-450) x10^3/uL MPV 8.9 (7.5-11.0) fL Gran % 66.9 H (36.0-66.0) % Immature Gran % (Auto) 0.8 H (0.00-0.4) % Nucleat RBC Rel Count 0.0 (0.00-0.1) % Eos # (Auto) 0.07 (0-0.5) x10^3/uL Immature Gran # (Auto) 0.05 H (0.00-0.03) x10^3u/L Absolute Lymphs (auto) 1.49 (1.0-4.6) x10^3/uL Absolute Monos (auto) 0.56 (0.0-1.3) x10^3/uL Absolute Nucleated RBC 0.00 (0.00-0.01) x10^3u/L Lymphocytes % 22.5 L (24.0-44.0) % Monocytes % 8.5 (0.0-12.0) % Eosinophils % 1.1 (0.00-5.0) % Basophils % 0.2 (0.0-0.4) % Absolute Granulocytes 4.44 (1.4-6.9) x10^3/uL Basophils # 0.01 (0-0.4) x10^3/uL PT 10.6 (9.4-12.5) SECONDS INR 0.97 (0.8-3.0) APTT 25.4 (25.1-36.5) SECONDS D-Dimer 4.90 H* (0.0-0.50) mg/L Sodium 138 (135-145) mmol/L Potassium 4.0 (3.5-5.1) mmol/L Chloride 108 H (98-107) mmol/L Carbon Dioxide 20 L (22-30) mmol/L Anion Gap 13.9 (5-15) MEQ/L BUN 24 H (9-20) mg/dL Creatinine 1.56 H (0.66-1.25) mg/dL Estimated GFR 47.5 ML/MIN Glucose 94 (74-106) mg/dL Calcium 9.0 (8.4-10.2) mg/dL Total Bilirubin 0.80 (0.2-1.3) mg/dL AST 23 (17-59) U/L ALT 18 (0-50) U/L Alkaline Phosphatase 71 (38-126) U/L Troponin (0.00-0.03) ng/mL Troponin I (0.000-0.034) ng/mL Serum Total Protein 6.8 (6.3-8.2) g/dL Albumin 4.2 (3.5-5.0) g/dL Stl Occult Blood (IFOB) (NEGATIVE) C. difficile Screen (NEGATIVE) C.difficile 027-NAP1-B1 (NEGATIVE) 10/26/23 10/26/23 10/26/23 Range/Units 12:44 17:30 17:59 WBC (4.0-10.5) x10^3/uL RBC (4.1-5.6) x10^6/uL Hgb (12.5-18.0) g/dL Hct (42-50) % MCV (78-100) fL MCH (26-32) pg MCHC (32-36) g/dL RDW (11.5-14.0) % Plt Count (150-450) x10^3/uL MPV (7.5-11.0) fL Gran % (36.0-66.0) % Immature Gran % (Auto) (0.00-0.4) % Nucleat RBC Rel Count (0.00-0.1) % Eos # (Auto) (0-0.5) x10^3/uL Immature Gran # (Auto) (0.00-0.03) x10^3u/L Absolute Lymphs (auto) (1.0-4.6) x10^3/uL Absolute Monos (auto) (0.0-1.3) x10^3/uL Absolute Nucleated RBC (0.00-0.01) x10^3u/L Lymphocytes % (24.0-44.0) % Monocytes % (0.0-12.0) % Eosinophils % (0.00-5.0) % Basophils % (0.0-0.4) % Absolute Granulocytes (1.4-6.9) x10^3/uL Basophils # (0-0.4) x10^3/uL PT (9.4-12.5) SECONDS INR (0.8-3.0) APTT (25.1-36.5) SECONDS D-Dimer (0.0-0.50) mg/L Sodium (135-145) mmol/L Potassium (3.5-5.1) mmol/L Chloride (98-107) mmol/L Carbon Dioxide (22-30) mmol/L Anion Gap (5-15) MEQ/L BUN (9-20) mg/dL Creatinine (0.66-1.25) mg/dL Estimated GFR ML/MIN Glucose (74-106) mg/dL Calcium (8.4-10.2) mg/dL Total Bilirubin (0.2-1.3) mg/dL AST (17-59) U/L ALT (0-50) U/L Alkaline Phosphatase (38-126) U/L Troponin 0.04 H (0.00-0.03) ng/mL Troponin I 0.026 (0.000-0.034) ng/mL Serum Total Protein (6.3-8.2) g/dL Albumin (3.5-5.0) g/dL Stl Occult Blood (IFOB) (NEGATIVE) C. difficile Screen NEGATIVE (NEGATIVE) C.difficile 027-NAP1-B1 PRESUMPTIVE NEGATIVE (NEGATIVE) 03/23/24 03/23/24 Range/Units 18:00 20:33 WBC (4.0-10.5) x10^3/uL RBC (4.1-5.6) x10^6/uL Hgb (12.5-18.0) g/dL Hct (42-50) % MCV (78-100) fL MCH (26-32) pg MCHC (32-36) g/dL RDW (11.5-14.0) % Plt Count (150-450) x10^3/uL MPV (7.5-11.0) fL Gran % (36.0-66.0) % Immature Gran % (Auto) (0.00-0.4) % Nucleat RBC Rel Count (0.00-0.1) % Eos # (Auto) (0-0.5) x10^3/uL Immature Gran # (Auto) (0.00-0.03) x10^3u/L Absolute Lymphs (auto) (1.0-4.6) x10^3/uL Absolute Monos (auto) (0.0-1.3) x10^3/uL Absolute Nucleated RBC (0.00-0.01) x10^3u/L Lymphocytes % (24.0-44.0) % Monocytes % (0.0-12.0) % Eosinophils % (0.00-5.0) % Basophils % (0.0-0.4) % Absolute Granulocytes (1.4-6.9) x10^3/uL Basophils # (0-0.4) x10^3/uL PT (9.4-12.5) SECONDS INR (0.8-3.0) APTT (25.1-36.5) SECONDS D-Dimer (0.0-0.50) mg/L Sodium (135-145) mmol/L Potassium (3.5-5.1) mmol/L Chloride (98-107) mmol/L Carbon Dioxide (22-30) mmol/L Anion Gap (5-15) MEQ/L BUN (9-20) mg/dL Creatinine (0.66-1.25) mg/dL Estimated GFR ML/MIN Glucose (74-106) mg/dL Calcium (8.4-10.2) mg/dL Total Bilirubin (0.2-1.3) mg/dL AST (17-59) U/L ALT (0-50) U/L Alkaline Phosphatase (38-126) U/L Troponin (0.00-0.03) ng/mL Troponin I 0.022 (0.000-0.034) ng/mL Serum Total Protein (6.3-8.2) g/dL Albumin (3.5-5.0) g/dL Stl Occult Blood (IFOB) NEGATIVE (NEGATIVE) C. difficile Screen (NEGATIVE) C.difficile 027-NAP1-B1 (NEGATIVE) Radiology Exams: Radiology Procedures Category Date Time Status ABDOMEN AND PELVIS W/0 CONTRAS [CT] Stat Exams 10/26/23 16:26 Completed CHEST 2 VIEWS (PA AND LAT) Stat Exams 10/26/23 12:37 Completed CHEST WITH CONTRAST [CT] Stat Exams 10/26/23 13:29 Completed Assessment/Plan (1) Pulmonary embolism, bilateral Current Visit: Yes Status: Acute Assessment & Plan: -CT reviewed showing bilateral PE., no prior, unprovoked. -Lovenoxy given in ED will start Eliquis 10mg BID orallly x 7 days followed by 5mg bid there after -Stool occult was negative. Hgb normal. -Hold and avoid all NSAIDs from now on. He was on Meloxicam -RA Code(s): I26.99 - OTHER PULMONARY EMBOLISM WITHOUT ACUTE COR PULMONALE (2) Acute diverticulitis Current Visit: Yes Status: Acute Assessment & Plan: -CT showing Colonic diverticulosis with minimal surrounding fat strandings in the sigmoid colon, may represent an early sign of acute diverticulitis. -Zosyn -CLD ADAT -Supportive care with pain control and anit-emetics as needed -Can switch to oral antibiotics once tolerating a diet Augmentin/Flagyl Code(s): K57.92 - DVTRCLI OF INTEST, PART UNSP, W/O PERF OR ABSCESS W/O BLEED (3) Arthritis Current Visit: Yes Status: Acute Assessment & Plan: Tylenol prn. Avoid all NSAIDs given CKD/EVAN Code(s): M19.90 - UNSPECIFIED OSTEOARTHRITIS, UNSPECIFIED SITE (4) BPH (benign prostatic hyperplasia) Current Visit: Yes Status: Acute Assessment & Plan: -Resume home med flomax Code(s): N40.0 - BENIGN PROSTATIC HYPERPLASIA WITHOUT LOWER URINRY TRACT SYMP (5) Chronic kidney disease, stage 3 unspecified Current Visit: Yes Status: Acute Assessment & Plan: Cr 1.56. He was told he has CKD by his PCP 1 yr ago. He received IV contrast for CT chest, so will monitor closely for sign of JV. He was given IVF bolus at the time of IV contrast administration. I will continue NS at 75ml/hr. Monitor Cr closely He is to avoid all NSAIDs. I am holding ARB and thiazide for now as well (in case he developed an EVAN, and diuretic use in and around time of IV contrast can increase risk for JV). 10/26: -creat improving 1.31<1.56 -continue gentle hydration -monitor fluid overload -Continue to hold ARB/thiazide Code(s): N18.30 - CHRONIC KIDNEY DISEASE, STAGE 3 UNSPECIFIED (6) Essential (primary) hypertension Current Visit: Yes Status: Acute Assessment & Plan: BP being monitored. Resume Almodipine. Holding HCTZ and Losartan given EVAN. VTE Eliquis Dispo 1-2 days Code(s): I10 - ESSENTIAL (PRIMARY) HYPERTENSION
[2023-10-27 06:35] LABS: ANION GAP 10.7 MEQ/L (5-15); Calcium 8.2 mg/dL (8.4-10.2); Creatinine 1 1.31 mg/dL (0.66-1.25); EST GLOMERULAR FILTRATION RATE 58.6 ML/MIN; Potassium 4.1 mmol/L (3.5-5.1)
[2023-10-27 07:34] VITALS: O2SAT 96
[2023-10-27] MEDS ORDERED: PHARMACY DOSING REQUEST MC ONE (08:00)
[2023-10-27] MEDS ORDERED: ELIQUIS 2.5 MG TABLET PO SCH (09:00)
[2023-10-27] MEDS: Flomax 0.4 MG PO SCH (09:11)
[2023-10-27] MEDS: PIPERACILLIN/TAZOBACTAM 3.375 GM in Sodium Chloride 100ML MINI-BAG PLUS 100 ML IV SCH (09:11)
[2023-10-27] MEDS: NORVASC 5 MG PO SCH (09:11)
[2023-10-27] MEDS: Toprol-Xl 25MG Tablets PO SCH (09:11)
[2023-10-27] MEDS: ELIQUIS 2.5 MG TABLET PO SCH (09:11)
--- NOTE | 2023-10-27 11:30 | PCM.DS ---
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 These has been going on since last . He came in today for the SOB. Also c/o dizziness. Denies cough, wheezing, palpitation, orthopnea, legs swelling nor pain, prior hx of CAD/CHF/pulmonary embolism. He denies any recent surgery or trauma. In ER, CT chest with IV contrast shows BL PE. He was being DC'ed to home with oral Eliquis but he c/o abdominal pain aas well. CT abd shows diverticulitis - thus the decision to keep him overnight for monitoring. He denies significant abdominal pain - a dull aching lower part, 3-5 out of 10. No nausea, vomiting, diarrhea, melena or hematochezia. Patients diet advanced, pain has improved, patient requesting discharge. Advised follow up with PCP/hematology (sees Dr. Lew). Patient at baseline creat, advised to continue to hold HCTZ/arb until repeat labs (Call PCP Saturday for lab work/follow up) Discharge Note New Diagnosis: PE/diverticulitits New Medications: Eliquis/augmentin -hold HCTZ/ARB Follow Up: pcp/heme/onc Latest Assessment & Plan Assessment/Plan (1) Pulmonary embolism, bilateral Current Visit: Yes Status: Acute Assessment & Plan: -CT reviewed showing bilateral PE., no prior, unprovoked. -Lovenoxy given in ED will start Eliquis 10mg BID orallly x 7 days followed by 5mg bid there after -Stool occult was negative. Hgb normal. -Hold and avoid all NSAIDs from now on. He was on Meloxicam -RA Code(s): I26.99 - OTHER PULMONARY EMBOLISM WITHOUT ACUTE COR PULMONALE (2) Acute diverticulitis Current Visit: Yes Status: Acute Assessment & Plan: -CT showing Colonic diverticulosis with minimal surrounding fat strandings in the sigmoid colon, may represent an early sign of acute diverticulitis. -Zosyn -CLD ADAT -Supportive care with pain control and anit-emetics as needed -Can switch to oral antibiotics once tolerating a diet Augmentin/Flagyl Code(s): K57.92 - DVTRCLI OF INTEST, PART UNSP, W/O PERF OR ABSCESS W/O BLEED (3) Arthritis Current Visit: Yes Status: Acute Assessment & Plan: Tylenol prn. Avoid all NSAIDs given CKD/EVAN Code(s): M19.90 - UNSPECIFIED OSTEOARTHRITIS, UNSPECIFIED SITE (4) BPH (benign prostatic hyperplasia) Current Visit: Yes Status: Acute Assessment & Plan: -Resume home med flomax Code(s): N40.0 - BENIGN PROSTATIC HYPERPLASIA WITHOUT LOWER URINRY TRACT SYMP (5) Chronic kidney disease, stage 3 unspecified Current Visit: Yes Status: Acute Assessment & Plan: Cr 1.56. He was told he has CKD by his PCP 1 yr ago. He received IV contrast for CT chest, so will monitor closely for sign of JV. He was given IVF bolus at the time of IV contrast administration. I will continue NS at 75ml/hr. Monitor Cr closely He is to avoid all NSAIDs. I am holding ARB and thiazide for now as well (in case he developed an EVAN, and diuretic use in and around time of IV contrast can increase risk for JV). 10/26: -creat improving 1.31<1.56 - at baseline -continue gentle hydration -monitor fluid overload -Continue to hold ARB/thiazide until follow up with PCP (call Saturday for repeat labs) Code(s): N18.30 - CHRONIC KIDNEY DISEASE, STAGE 3 UNSPECIFIED (6) Essential (primary) hypertension Current Visit: Yes Status: Acute Assessment & Plan: BP being monitored. Resume Almodipine. Holding HCTZ and Losartan given EVAN. I spent 35 minutes [id number] with the patient on the day of discharge performing discharge exam, discussing hospital stay and discharge instructions with patient and caregivers, preparation of discharge records, prescriptions & referral forms and addressing any questions/concerns the patient had as documented above. - Vitals & Intake/Output Vital Signs: Vital Signs Temperature 97 F 10/27/23 07:33 Pulse Rate 70 10/27/23 07:33 Respiratory Rate 18 10/27/23 07:33 Blood Pressure 152/88 10/27/23 07:33 O2 Sat by Pulse Oximetry 96 10/27/23 07:33 Intake & Output: Intake & Output 10/24/23 10/25/23 10/26/23 10/27/23 11:59 11:59 11:59 11:59 Intake Total 2837 Balance 2837 Weight 76.7 kg - Lab Result Diagrams: 10/27/23 05:31 10/27/23 05:31 Lab Results-Last 24 Hrs: Lab Results-Last 24 Hours 10/26/23 10/26/23 10/26/23 Range/Units 12:44 12:44 12:44 WBC 6.6 (4.0-10.5) x10^3/uL RBC 4.35 (4.1-5.6) x10^6/uL Hgb 13.4 (12.5-18.0) g/dL Hct 40.8 L (42-50) % MCV 93.8 (78-100) fL MCH 30.8 (26-32) pg MCHC 32.8 (32-36) g/dL RDW 13.4 (11.5-14.0) % Plt Count 204 (150-450) x10^3/uL MPV 8.9 (7.5-11.0) fL Gran % 66.9 H (36.0-66.0) % Immature Gran % (Auto) 0.8 H (0.00-0.4) % Nucleat RBC Rel Count 0.0 (0.00-0.1) % Eos # (Auto) 0.07 (0-0.5) x10^3/uL Immature Gran # (Auto) 0.05 H (0.00-0.03) x10^3u/L Absolute Lymphs (auto) 1.49 (1.0-4.6) x10^3/uL Absolute Monos (auto) 0.56 (0.0-1.3) x10^3/uL Absolute Nucleated RBC 0.00 (0.00-0.01) x10^3u/L Lymphocytes % 22.5 L (24.0-44.0) % Monocytes % 8.5 (0.0-12.0) % Eosinophils % 1.1 (0.00-5.0) % Basophils % 0.2 (0.0-0.4) % Absolute Granulocytes 4.44 (1.4-6.9) x10^3/uL Basophils # 0.01 (0-0.4) x10^3/uL PT 10.6 (9.4-12.5) SECONDS INR 0.97 (0.8-3.0) APTT 25.4 (25.1-36.5) SECONDS D-Dimer 4.90 H* (0.0-0.50) mg/L Sodium 138 (135-145) mmol/L Potassium 4.0 (3.5-5.1) mmol/L Chloride 108 H (98-107) mmol/L Carbon Dioxide 20 L (22-30) mmol/L Anion Gap 13.9 (5-15) MEQ/L BUN 24 H (9-20) mg/dL Creatinine 1.56 H (0.66-1.25) mg/dL Estimated GFR 47.5 ML/MIN Glucose 94 (74-106) mg/dL Calcium 9.0 (8.4-10.2) mg/dL Total Bilirubin 0.80 (0.2-1.3) mg/dL AST 23 (17-59) U/L ALT 18 (0-50) U/L Alkaline Phosphatase 71 (38-126) U/L Troponin (0.00-0.03) ng/mL Troponin I (0.000-0.034) ng/mL Serum Total Protein 6.8 (6.3-8.2) g/dL Albumin 4.2 (3.5-5.0) g/dL Stl Occult Blood (IFOB) (NEGATIVE) C. difficile Screen (NEGATIVE) C.difficile 027-NAP1-B1 (NEGATIVE) 10/26/23 10/26/23 10/26/23 Range/Units 12:44 17:30 17:59 WBC (4.0-10.5) x10^3/uL RBC (4.1-5.6) x10^6/uL Hgb (12.5-18.0) g/dL Hct (42-50) % MCV (78-100) fL MCH (26-32) pg MCHC (32-36) g/dL RDW (11.5-14.0) % Plt Count (150-450) x10^3/uL MPV (7.5-11.0) fL Gran % (36.0-66.0) % Immature Gran % (Auto) (0.00-0.4) % Nucleat RBC Rel Count (0.00-0.1) % Eos # (Auto) (0-0.5) x10^3/uL Immature Gran # (Auto) (0.00-0.03) x10^3u/L Absolute Lymphs (auto) (1.0-4.6) x10^3/uL Absolute Monos (auto) (0.0-1.3) x10^3/uL Absolute Nucleated RBC (0.00-0.01) x10^3u/L Lymphocytes % (24.0-44.0) % Monocytes % (0.0-12.0) % Eosinophils % (0.00-5.0) % Basophils % (0.0-0.4) % Absolute Granulocytes (1.4-6.9) x10^3/uL Basophils # (0-0.4) x10^3/uL PT (9.4-12.5) SECONDS INR (0.8-3.0) APTT (25.1-36.5) SECONDS D-Dimer (0.0-0.50) mg/L Sodium (135-145) mmol/L Potassium (3.5-5.1) mmol/L Chloride (98-107) mmol/L Carbon Dioxide (22-30) mmol/L Anion Gap (5-15) MEQ/L BUN (9-20) mg/dL Creatinine (0.66-1.25) mg/dL Estimated GFR ML/MIN Glucose (74-106) mg/dL Calcium (8.4-10.2) mg/dL Total Bilirubin (0.2-1.3) mg/dL AST (17-59) U/L ALT (0-50) U/L Alkaline Phosphatase (38-126) U/L Troponin 0.04 H (0.00-0.03) ng/mL Troponin I 0.026 (0.000-0.034) ng/mL Serum Total Protein (6.3-8.2) g/dL Albumin (3.5-5.0) g/dL Stl Occult Blood (IFOB) (NEGATIVE) C. difficile Screen NEGATIVE (NEGATIVE) C.difficile 027-NAP1-B1 PRESUMPTIVE NEGATIVE (NEGATIVE) 10/26/23 10/26/23 10/27/23 Range/Units 18:00 20:33 05:31 WBC 5.1 (4.0-10.5) x10^3/uL RBC 3.75 L (4.1-5.6) x10^6/uL Hgb 11.6 L (12.5-18.0) g/dL Hct 35.3 L (42-50) % MCV 94.1 (78-100) fL MCH 30.9 (26-32) pg MCHC 32.9 (32-36) g/dL RDW 13.3 (11.5-14.0) % Plt Count 171 (150-450) x10^3/uL MPV 8.9 (7.5-11.0) fL Gran % (36.0-66.0) % Immature Gran % (Auto) (0.00-0.4) % Nucleat RBC Rel Count (0.00-0.1) % Eos # (Auto) (0-0.5) x10^3/uL Immature Gran # (Auto) (0.00-0.03) x10^3u/L Absolute Lymphs (auto) (1.0-4.6) x10^3/uL Absolute Monos (auto) (0.0-1.3) x10^3/uL Absolute Nucleated RBC (0.00-0.01) x10^3u/L Lymphocytes % (24.0-44.0) % Monocytes % (0.0-12.0) % Eosinophils % (0.00-5.0) % Basophils % (0.0-0.4) % Absolute Granulocytes (1.4-6.9) x10^3/uL Basophils # (0-0.4) x10^3/uL PT (9.4-12.5) SECONDS INR (0.8-3.0) APTT (25.1-36.5) SECONDS D-Dimer (0.0-0.50) mg/L Sodium (135-145) mmol/L Potassium (3.5-5.1) mmol/L Chloride (98-107) mmol/L Carbon Dioxide (22-30) mmol/L Anion Gap (5-15) MEQ/L BUN (9-20) mg/dL Creatinine (0.66-1.25) mg/dL Estimated GFR ML/MIN Glucose (74-106) mg/dL Calcium (8.4-10.2) mg/dL Total Bilirubin (0.2-1.3) mg/dL AST (17-59) U/L ALT (0-50) U/L Alkaline Phosphatase (38-126) U/L Troponin (0.00-0.03) ng/mL Troponin I 0.022 (0.000-0.034) ng/mL Serum Total Protein (6.3-8.2) g/dL Albumin (3.5-5.0) g/dL Stl Occult Blood (IFOB) NEGATIVE (NEGATIVE) C. difficile Screen (NEGATIVE) C.difficile 027-NAP1-B1 (NEGATIVE) 10/27/23 Range/Units 05:31 WBC (4.0-10.5) x10^3/uL RBC (4.1-5.6) x10^6/uL Hgb (12.5-18.0) g/dL Hct (42-50) % MCV (78-100) fL MCH (26-32) pg MCHC (32-36) g/dL RDW (11.5-14.0) % Plt Count (150-450) x10^3/uL MPV (7.5-11.0) fL Gran % (36.0-66.0) % Immature Gran % (Auto) (0.00-0.4) % Nucleat RBC Rel Count (0.00-0.1) % Eos # (Auto) (0-0.5) x10^3/uL Immature Gran # (Auto) (0.00-0.03) x10^3u/L Absolute Lymphs (auto) (1.0-4.6) x10^3/uL Absolute Monos (auto) (0.0-1.3) x10^3/uL Absolute Nucleated RBC (0.00-0.01) x10^3u/L Lymphocytes % (24.0-44.0) % Monocytes % (0.0-12.0) % Eosinophils % (0.00-5.0) % Basophils % (0.0-0.4) % Absolute Granulocytes (1.4-6.9) x10^3/uL Basophils # (0-0.4) x10^3/uL PT (9.4-12.5) SECONDS INR (0.8-3.0) APTT (25.1-36.5) SECONDS D-Dimer (0.0-0.50) mg/L Sodium 140 (135-145) mmol/L Potassium 4.1 (3.5-5.1) mmol/L Chloride 113 H (98-107) mmol/L Carbon Dioxide 20 L (22-30) mmol/L Anion Gap 10.7 (5-15) MEQ/L BUN 18 (9-20) mg/dL Creatinine 1.31 H (0.66-1.25) mg/dL Estimated GFR 58.6 ML/MIN Glucose 82 (74-106) mg/dL Calcium 8.2 L (8.4-10.2) mg/dL Total Bilirubin (0.2-1.3) mg/dL AST (17-59) U/L ALT (0-50) U/L Alkaline Phosphatase (38-126) U/L Troponin (0.00-0.03) ng/mL Troponin I (0.000-0.034) ng/mL Serum Total Protein (6.3-8.2) g/dL Albumin (3.5-5.0) g/dL Stl Occult Blood (IFOB) (NEGATIVE) C. difficile Screen (NEGATIVE) C.difficile 027-NAP1-B1 (NEGATIVE) - Radiology Exams Ordered Rad Exams-Entire Visit: Radiology Procedures Category Date Time Status ABDOMEN AND PELVIS W/0 CONTRAS [CT] Stat Exams 10/26/23 16:26 Completed CHEST 2 VIEWS (PA AND LAT) Stat Exams 10/26/23 12:37 Completed CHEST WITH CONTRAST [CT] Stat Exams 10/26/23 13:29 Completed - Procedures and Test Procedures and Tests throughout Hospitalization: Therapy Orders & Screens 10/26/23 18:13 Oxygen Nasal Cannula 2 lpm Comment: Respiratory Therapy Consult ONCE Comment: Reason For Exam: Discharge Exam General Appearance: no apparent distress Neurologic Exam: alert, oriented x 3, cooperative Eye Exam: PERRL Ears, Nose, Throat Exam: normal ENT inspection Neck Exam: normal inspection Respiratory Exam: normal breath sounds, lungs clear Cardiovascular Exam: regular rate/rhythm, normal heart sounds Gastrointestinal/Abdomen Exam: soft, normal bowel sounds Male Genitalia Exam: deferred Rectal Exam: deferred Back Exam: normal inspection Extremity Exam: normal inspection Skin Exam: normal color Final Diagnosis/Problem List - Final Discharge Diagnosis/Problem (1) Pulmonary embolism, bilateral Current Visit: Yes Status: Acute Code(s): I26.99 - OTHER PULMONARY EMBOLISM WITHOUT ACUTE COR PULMONALE (2) Acute diverticulitis Current Visit: Yes Status: Acute Code(s): K57.92 - DVTRCLI OF INTEST, PART UNSP, W/O PERF OR ABSCESS W/O BLEED (3) Arthritis Current Visit: Yes Status: Acute Code(s): M19.90 - UNSPECIFIED OSTEOARTHRITIS, UNSPECIFIED SITE (4) BPH (benign prostatic hyperplasia) Current Visit: Yes Status: Acute Code(s): N40.0 - BENIGN PROSTATIC HYPERPLASIA WITHOUT LOWER URINRY TRACT SYMP (5) Chronic kidney disease, stage 3 unspecified Current Visit: Yes Status: Acute Code(s): N18.30 - CHRONIC KIDNEY DISEASE, STAGE 3 UNSPECIFIED (6) Essential (primary) hypertension Current Visit: Yes Status: Acute Code(s): I10 - ESSENTIAL (PRIMARY) HYPERTENSION - Discharge Disposition: Home, Self-Care Condition: Fair Prescriptions: New Amox Tr/Potass Clav. 875 mg [Augmentin 875-125 Tablet] 875 mg PO BID 5 Days #10 tablet Apixaban [Eliquis] See Rx Instructions .ROUTE .COMPLEX 30 Days #70 tab Continue Metoprolol Succinate 25 mg Xl* [Toprol-Xl 25MG Tablets] 25 mg PO DAILY Tamsulosin HCl 0.4 mg [Flomax 0.4 MG] 0.4 mg PO DAILY Amlodipine Besylate 5 mg [Norvasc 5 mg] 5 mg PO DAILY Non-Formulary Drug [Non-Formulary Item] 4 cap PO QAM Discontinued Meloxicam [Mobic] 15 mg PO DAILY hydroCHLOROthiazide [Hydrochlorothiazide] 12.5 mg PO DAILY Losartan Potassium [Cozaar] 1 tab PO DAILY Additional Instructions: Please call PCP for repeat lab work on Saturday to check kidney function Hold HCTZ/NSAID/losartan until f/u with pcp/labwork Follow up with: WILLIAM ALTAMIRANO MD [Primary Care Provider] - NISH LEW MD [COURTESY STAFF] - 1 Week
[2023-10-27] MEDS ORDERED: PIPERACILLIN/TAZOBACTAM 3.375 GM in Sodium Chloride 100ML MINI-BAG PLUS 100 ML IV SCH (12:00)
[2023-10-27 12:34] VITALS: BP 175/96; PULSE 68; TEMP 97.2
[2023-10-29 13:11] LABS: Adenovirus F40/41 Not Detected (Not Detected); Astrovirus Not Detected (Not Detected); Campylobacter Not Detected (Not Detected); Cryptosporidium Not Detected (Not Detected); Cyclospora cayetanensis Not Detected (Not Detected); Entamoeba histolytica Not Detected (Not Detected); Enteroaggregative E coli Not Detected (Not Detected); Enterpathogenic E coli Not Detected (Not Detected); Entertoxigenic E coli Not Detected (Not Detected); Giardia lamblia Not Detected (Not Detected); Norovirus GI/GII Not Detected (Not Detected); Plesiomonas shigelloides Not Detected (Not Detected); Rotavirus A Not Detected (Not Detected); Salmonella Not Detected (Not Detected); Shig-toxin-producing E coli Not Detected (Not Detected); Shigella/Enterinvasive E coli Not Detected (Not Detected); Vibrio Not Detected (Not Detected); Vibrio cholerae Not Detected (Not Detected); Yersinia enterocolitica Not Detected (Not Detected)
[2023-10-29 13:22] LABS: Sapovirus Not Detected (Not Detected)
== END 2023-10-27 14:21 | disposition home or self-care (01) ==
LOC: ED 12:31 → MED SURG 18:10
PROVIDERS: ADMIT Internal Medicine; ATTEND Internal Medicine
DX: I26.99 Other pulmonary embolism without acute cor pulmonale (principal); K57.92 Diverticulitis of intestine, part unspecified, without perforation or abscess without bleeding; M19.90 Unspecified osteoarthritis, unspecified site; N40.0 Benign prostatic hyperplasia without lower urinary tract symptoms; I12.9 Hypertensive chronic kidney disease with stage 1 through stage 4 chronic kidney disease, or unspecified chronic kidney disease; N18.30 Chronic kidney disease, stage 3 unspecified; C95.91 Leukemia, unspecified, in remission; Z79.899 Other long term (current) drug therapy; Z20.828 Contact with and (suspected) exposure to other viral communicable diseases
CPT/HCPCS: 36000; 36415; 71046; 71260; 74176; 80048; 80053; 84484; 85025; 85027; 85379; 85610; 85730; 87493; 87507; 93005; 93268; 96372; 96374; 99284; 99291; G0328; G0378; Q3014; 82274; J1650; A9270-GY